=== PATIENT | male | born 1935 | race Caucasian/White ===

== ENCOUNTER 2017-07-11 13:31 | Outpatient (CLI) | payer MEDICARE, BC ==
--- NOTE | 2017-07-11 15:17 | MRI ---
SATISH LUMBAR SPINE WITH AND WITHNOUT CONTRAST: Date: 07/11/17 INDICATION: History of back pain, left leg foot drop, and pain. History of renal cancer. Back surgery in November 17. COMPARISON: MRI lumbar spine without contrast dated 06/16/16. TECHNIQUE: Multiplanar, multisequence MR images were obtained of the lumbar spine with and without contrast. 10 mL of MultiHance utilized for the exam. FINDINGS: Since the comparison examination, there has been interval performance of laminectomies at L2-3 and L 3-4. The visualized retroperitoneum demonstrates large cystic abnormalities involving both kidneys which were seen on the comparison examination. At L5-S1, there is a broad based disc bulge with a superimposed central disc protrusion which is sta ble to the prior exam. There is moderate right and mild left facet joint degenerative change. Conste llation of findings induces mild right and minimal left neural foraminal narrowing. At L4-5, there is stable Grade I anterolisthesis. There is severe facet joint degenerative change. T here is a broad based disc bulge and facet hypertrophy inducing mild central canal narrowing with mo derate to severe right and mild left neural foraminal narrowing. This is stable to the prior exam. At L3-4, there is a broad based disc osteophyte complex with facet hypertrophy inducing mild central canal narrowing with mild to moderate left and severe right neural foraminal narrowing which is sta ble. At L2-3, there is a broad based disc osteophyte complex and facet hypertrophy inducing mild central canal narrowing. The extent of the central canal narrowing is improved from the comparison exam. The re is a broad based disc osteophyte complex and facet hypertrophy inducing moderate to severe left a nd moderate right neural foraminal narrowing which is stable to the prior exam. At L1-L2, there is a broad based disc bulge with facet hypertrophy inducing mild central canal narro wing with moderate right and moderate to severe left neural foraminal narrowing. This is stable to t he prior exam. At T12-L1, there is a broad based disc osteophyte complex causing mild bilateral neural foraminal na rrowing which is stable. No definite abnormal enhancement is demonstrated. IMPRESSION: 1. Interval decompression of the L2-3 intervertebral level and L3-4 intervertebral level with impro vement in the central canal narrowing. Mild central canal narrowing remains at L2-3 and L3-4. 2. Multilevel prominent neural foraminal narrowing is stable. POS: [facility]
== END 2017-07-11 13:32 | disposition home or self-care (01) ==
LOC: TBSIIMAG 13:31
PROVIDERS: ATTEND Neurological Surgery
DX: M54.16 Radiculopathy, lumbar region (principal); M48.061 Spinal stenosis, lumbar region without neurogenic claudication
CPT/HCPCS: 72158

== ENCOUNTER 2018-08-23 09:43 | Outpatient (CLI) | payer MEDICARE ==
--- NOTE | 2018-08-23 12:43 | RAD ---
KUB: Date: 08-23-18 Comparison: 06-30-15 History: Renal calculi. FINDINGS: Multiple punctate calcific densities overlie the left upper quadrant, etiology uncertain. These could simply represent vascular calcifications. Punctate renal calculi cannot be excluded on the basis of this exam. No calcification in the right upper quadrant seen. Bilateral laminectomy changes noted at L3, L4, and L5 with multilevel degenerative disc disease of th e lumbar spine. Multiple calcifications in the pelvis noted, suggesting vascular calcifications. Ther e is an incompletely imaged hip arthroplasty on the left. There is degenerative change at the pubic s ymphysis. There is degenerative change of bilateral sacroiliac joints. IMPRESSION: Abdominal and pelvic calcification as detailed above. POS: [facility]
== END 2018-08-23 09:44 | disposition home or self-care (01) ==
LOC: RAD 09:43
PROVIDERS: ATTEND Urology
DX: Z09 Encounter for follow-up examination after completed treatment for conditions other than malignant neoplasm (principal); N28.89 Other specified disorders of kidney and ureter; Z87.442 Personal history of urinary calculi
CPT/HCPCS: 74018

== ENCOUNTER 2019-01-27 06:22 | Emergency (ER) | payer MEDICARE, BC ==
--- NOTE | 2019-01-27 08:50 | RAD ---
CHEST 2 VIEWS: Date: 01/27/19 INDICATION: Cough for 3 days. COMPARISON: Prior single view of chest dated 04/13/11. FINDINGS: There is stable cardiomegaly. Lungs are clear. There is multilevel spondylosis throughout thoracic sp ine. No pleural effusion or pneumothorax evident. IMPRESSION: Stable cardiomegaly. POS: [facility]
--- NOTE | 2019-01-31 05:38 | PQF ---
[facility] POST DISCHARGE CLINICAL DOCUMENTATION IMPROVEMENT CLARIFICATION FORM l Todays Date: 01/30/19 l Patients Name CATERINA CASTELLANOS l l Admit Date 01/27/19 l Disch Date 01/27/19 Manager Mobile Name Martinez Ji Email: @[email or web address] Cell: [phone] To be completed by Manager Mobile: Present Clinical Indicators - Signs / Symptoms Results and Location in Medical Record [ ] Documentation of: [ ] [ ] Documentation of: [ ] [ ] Documentation of: [ ] [ ] Documentation of: [ ] [ ] Risks [ ] [ ] [ ] Treatment [ ] Bronchitis Missing specification of Acute or chronic Bronchitis [ ] [ ] To be completed by Physician: DO CAMPOS MATTHEW The documentation in this patients record requires clarification to ensure coding compliance and accuracy. Check the appropriate box and include in your discharge summary. [ ] [ ] [ ] [ ] Please check this box if this does not apply to this patient [ ] Unable to determine [ ] Other diagnosis: Review the following information and exercise your independent professional judgment in responding to the clarification. Based upon the clinical findings, risk factors, and treatment, please clarify if you are treating one of the above probable or suspected diagnoses. Physician Signature: Date Time MTDD
== END 2019-01-27 07:30 | disposition home or self-care (01) ==
LOC: ERS 06:22
DX: J40 Bronchitis, not specified as acute or chronic (principal); I10 Essential (primary) hypertension; E78.5 Hyperlipidemia, unspecified; Z79.899 Other long term (current) drug therapy
CPT/HCPCS: 71046; 87804

== ENCOUNTER 2019-01-29 04:07 | Observation (INO) | payer MEDICARE, BC ==
[2019-01-29] MEDS ORDERED: Morphine 4 MG/ML VIAL ONE (04:41)
[2019-01-29] MEDS ORDERED: Ondansetron PF 4 MG/2 ML Vial ONE (04:42)
[2019-01-29 04:54] LABS: #Basophils 0.1 thou/uL (0.0-0.2); #Eosinphils 0.3 thou/uL (0.0-0.7); #Lymphocytes 1.1 thou/uL (1.20-3.40); #Monocytes 1.5 thou/uL (0.11-0.59); #Neutrophils 9.7 thou/uL (1.40-6.50); %Basophils 0.4 % (0.0-1.0); %Lymphocytes 8.8 % (21.0-51.0); %Neutrophils 76.8 % (42.0-75.0); Hemoglobin 12.9 g/dL (14.0-18.0); Mean Corpuscular HGB CONC 33.3 g/dL (32.0-36.0); Mean Corpuscular Hemoglobin 31.9 pg (27.0-31.0); Mean Corpuscular Volume 95.9 fL (78.0-98.0); Mean Platelet Volume 8.3 fL (7.4-10.4); Platelet Count 162 thou/uL (130-400); RBC Distribution Width 12.4 % (11.5-14.5); Red Blood Cell (RBC) Count 4.04 mill/uL (4.70-6.10); White Blood Cell (WBC) Count 12.7 thou/uL (4.8-10.8)
[2019-01-29 05:17] LABS: ALT (SGPT) 20 U/L (8-55); AST (SGOT) 22 U/L (5-34); Albumin 4.1 g/dL (3.4-4.8); Alkaline Phosphatase 68 U/L (40-150); Anion Gap 14 mmol/L (10-20); BUN (Urea Nitrogen) 22 mg/dL (8.4-25.7); Bilirubin, Total 0.6 mg/dL (0.2-1.2); Calc. Creatinine Clearance 0 mL/min (70-130); Calcium 9.4 mg/dL (7.8-10.44); Carbon Dioxide 24 mmol/L (23-31); Chloride 105 mmol/L (98-107); Estimated GFR-MDRD 61; Glucose 105 mg/dL (83-110); Potassium 4.1 mmol/L (3.5-5.1); Protein, Total 7.1 g/dL (5.8-8.1); Sodium 139 mmol/L (136-145)
--- NOTE | 2019-01-29 06:56 | ULT ---
LEFT UPPER EXTREMITY DOPPLER VENOUS ULTRASOUND: INDICATIONS: History of left arm pain and pain at the wrist and fingers. TECHNIQUE: Graf-scale and color Doppler with spectral Doppler images were obtained of the venous structures of t he left upper extremity. The left internal jugular vein, the left subclavian vein, the left axillary vein, the left brachial vein, the left basilic vein, the left cephalic vein, the left ulnar vein, an d the left renal vein were assessed. FINDINGS: There is appropriate flow, augmentation, and compression involving the venous structures of the left upper extremity. IMPRESSION: No evidence of venous thrombosis within the left upper extremity. POS: [facility]
[2019-01-29] MEDS ORDERED: Aspirin 325 MG TAB ONE (07:46)
[2019-01-29] MEDS ORDERED: methylPREDNISolone Sod Succ/PF 125 MG/2 ML VIAL ONE (08:17)
[2019-01-29] MEDS ORDERED: Labetalol HCl 100 MG/20 ML VIAL SLOW IVP PRN (08:20)
[2019-01-29] MEDS ORDERED: Ondansetron ODT 4 MG TAB PO PRN (08:20)
[2019-01-29] MEDS ORDERED: Acetaminophen 325 MG TAB PO PRN (08:20)
[2019-01-29] MEDS ORDERED: Zolpidem Tartrate 5 MG TAB PO PRN (08:20)
[2019-01-29] MEDS ORDERED: HYDROcodone/Acetaminophen 7.5/325 mg Tablet PO PRN (08:20)
[2019-01-29] MEDS ORDERED: hydrALAZINE 20 MG/ML VIAL SLOW IVP PRN (08:20)
[2019-01-29] MEDS ORDERED: Lorazepam 2 MG/ML VIAL SLOW IVP PRN (08:23)
[2019-01-29] MEDS ORDERED: methylPREDNISolone Sod Succ/PF 125 MG/2 ML VIAL IVP SCH (08:30)
--- NOTE | 2019-01-29 08:44 | CT ---
PRELIMINARY REPORT/[facility]/EMERGENTY AFTER-HOURS PROCEDURE CT Head Without Contrast EXAM DATE/TIME: 01/29/2019 4:43 AM CLINICAL HISTORY: 83 years old, male; Signs and symptoms; Numbness / parasthesia; Patient HX: Er 5. No previous in pacs . M83 presents to ED for left arm weakness. PT reports working outside Monday evening, then left wris t and arm began hurting and weak. PT denies any other new numbness or weakness. PT was recently diagnosed w arthritis in bilat wrist by pcp Dr. Andersen, started on medication, but told to [facility] by at [facility]. PT was also seen Monday in ED, diagnosed with bronchitis. Hxlymphoma. TECHNIQUE: Imaging protocol: Axial computed tomography images of the head without contrast. COMPARISON: No relevant prior studies available. FINDINGS: Brain: No hemorrhage. No major vessel vascular territory infarct. No extra-axial fluid collection. Ch ronic small vessel ischemic changes. Ventricles: No hydrocephalus. Bones/joints: No acute fracture. Sinuses: Near-complete opacification of the right maxillary sinus. Mucosal thickening of the left maxillary sinus and multiple ethmoidal air cells. Mastoid air cells: Visualized mastoid air cells are well aerated. No mastoid effusion. Soft tissues: Unremarkable. IMPRESSION: No acute intracranial abnormality. Thank you for allowing us to participate in the care of your patient. Dictated and Authenticated by: Julia Raman MD 01/29/2019 5:06 AM Central Time ([place] & [place]) FINAL REPORT CT BRAIN WITHOUT CONTRAST: FINDINGS: I agree with the preliminary report given by Dr. Raman of [facility]. POS: [facility]
[2019-01-29] MEDS ORDERED: Enoxaparin Sodium 40 MG/0.4 ML SYRINGE SC SCH (09:00)
[2019-01-29] MEDS ORDERED: Amlodipine 5 MG TAB PO SCH (09:00)
--- NOTE | 2019-01-29 09:29 | HP ---
PRIMARY CARE PROVIDER: Cameron Andersen MD HISTORY OF PRESENT ILLNESS: Referred to the [facility] Service for a stroke versus TIA. The patient was in the emergency department 2 days ago with bronchitis, cough, congestion, got some medications and worked hard outside yesterday. Now with left arm hand weakness and pain. Pain is in his wrist, radiated up into his neck. No visual defect. No speech defect. No left leg problems. 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 He has had a renal cell carcinoma with a partial nephrectomy on the right in the past. He has hypertension, dyslipidemia, benign prostatic hypertrophy with prostatism. PAST SURGICAL HISTORY: L-spine surgery in 2016 and 2018, ORIF of the left femur x2 in the past, appendectomy. CURRENT MEDICATIONS: Routine, 1. Atorvastatin 40 mg a day. 2. Atenolol 50 mg a day, which he has been off for 2 days due to slow pulse. 3. Imdur 30 mg a day. 4. Aspirin 81 mg a day. 5. Lisinopril 20 mg a day. 6. Flomax 0.4 mg a day. 7. Prazosin 2 mg three times a day. ALLERGIES: NO KNOWN DRUG ALLERGIES. FAMILY HISTORY: Remarkable. Mother of breast cancer. Father of stomach cancer. Son with lymphoma currently in remission. One sibling of pancreatic cancer. One sibling of prostatic cancer. SOCIAL HISTORY: . Full code. Son, Dorian Cee, is the next of kin. No tobacco. No alcohol. REVIEW OF SYSTEMS: HEAD: No headaches, dizziness, fainting, fever, or chills. EYES: No double vision, blurred vision, or flashing light. EARS, NOSE, AND THROAT: No ear pain or drainage. No nose bleeding. No trouble swallowing. CARDIAC: No chest pain, orthopnea, or paroxysmal nocturnal dyspnea. RESPIRATIONS: Recent cough on medications, improved. No wheezing or asthma. GASTROINTESTINAL: No nausea, vomiting, diarrhea, or constipation. GENITOURINARY: No hematuria, dysuria, or nocturia. MUSCULOSKELETAL: He has no pain or swelling in his muscles, legs. He does have some radicular sciatica in his right posterior thigh. NEUROLOGICAL: No strokes or seizures. PSYCHIATRIC: No anxiety or depression. SKIN: No bruising, bleeding, or rash. HEME/LYMPH: No tender or swollen lymph nodes in axilla, inguinal, or cervical area. PHYSICAL EXAMINATION: VITAL SIGNS: Blood pressures ranging in the 215/101 to 149/72 range. Most recent diastolic in his room was 101, pulse 69, respirations 18, and temperature 98.4. HEAD, EYES, EARS, NOSE, AND THROAT: Reveals pupils are equal, round, reactive to light. Extraocular movements are intact. Sclerae are white. Tympanic membranes are clear. Nose is clear. Oral mucous membranes are wet. Dental hygiene is good. CHEST: Clear to auscultation and percussion. HEART: Has regular rate and rhythm. First and second second heart sounds are clear. There are no appreciated murmurs or gallops. ABDOMEN: Soft. Bowel sounds are normal. There is no hepatosplenomegaly. No mass. No rebound. No bruits. EXTREMITIES: Reveal no cyanosis, clubbing, or edema. He does have a hot, red, warm left wrist. PULSES: Carotid, radial, femoral, and dorsalis pedis pulses intact. SKIN: Warm and dry without bruises or rash. HEME/LYMPH: No tender or swollen lymph nodes in the axilla, inguinal, or cervical area. NEUROLOGICAL: He has some decreased [facility] [place] strength in his right hand, but it is related to pain and not weakness. He has no loss of strength in extensor flexor of the wrist or the elbow. IMAGING STUDIES: EKG not available, we will order. Vascular ultrasound done on the left arm reveals no thrombosis, etc. Brain CT reveals no acute intracranial abnormality, reviewed by me. LABORATORY DATA: CBC has mild elevation of white count at 12.7, hemoglobin is 12.9, platelet count is 162,000. Comprehensive metabolic profile is normal. ADMITTING DIAGNOSES: Probable acute gout, cervical radiculopathy, follicular lymphoma, hypertension, dyslipidemia, benign prostatic hypertrophy. PLAN: 1. The patient has been given 125 mg Solu-Medrol IV. 2. The patient is given amlodipine 5 mg p.o. now for hypertension. 3. Uric acid level and cervical MRI have been ordered. We will continue discussion further when data is available. Job ID: [id number]
[2019-01-29] MEDS ORDERED: Enoxaparin Sodium 40 MG/0.4 ML SYRINGE ONE (10:11)
[2019-01-29] MEDS ORDERED: Amlodipine 5 MG TAB ONE (10:11)
[2019-01-29 16:23] VITALS: TEMP 98.7
[2019-01-29 16:30] VITALS: BMI 31.4
[2019-01-29 16:53] VITALS: BP 155/69
--- NOTE | 2019-01-30 07:14 | DIS ---
DATE OF ADMISSION: 01/29/2019 DATE OF DISCHARGE: 01/29/2019 PRIMARY CARE PROVIDER: Dr. Cameron Andersen. FINAL DIAGNOSES: Acute arthritis, left wrist; follicular lymphoma; hypertension; dyslipidemia; and benign prostatic hypertrophy with prostatism. DISCHARGE MEDICATIONS: 1. Medrol Dosepak, start on 01/30/2019. 2. Amlodipine 5 mg p.o. daily. 3. Prazosin 2 mg twice a day. 4. Lisinopril 20 mg twice a day. 5. Imdur 30 mg daily. 6. Aspirin 81 mg a day. 7. Lipitor 40 mg a day. 8. Zithromax 250 mg in a Z-Willis, started on 01/27/2019. 9. Allopurinol 100 mg a day. 10. Tessalon Perles 100 mg every 8 hours. 11. Flomax 0.4 mg twice a day. 12. Mucinex D q.12 hours. ALLERGIES: NO KNOWN DRUG ALLERGIES. DIET: Heart healthy. PENDING AT TIME OF DISCHARGE: Nothing. CODE STATUS: Full. HOSPITAL COURSE: [facility] and TIA due to left hand weakness. In my evaluation, I found he had an inflamed left wrist, tender, erythematous; no fluctuance. 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 His blood pressure was elevated in the emergency room. He had stopped his atenolol due to having pulses in the 40s range and feeling fatigued. He was started on amlodipine and his blood pressure is currently 155/69. He was given Solu-Medrol in the emergency room. 8 hours later, he has minimal erythema, minimal swelling, good range of motion of his wrist, good cloth printing inspector strength. Because of the worry of possible cervical radiculopathy, I had ordered MRI of his C-spine, but since he is doing so well that he and I agreed it would be canceled. His uric acid was in normal range. On discussion, he is agreeable with going home with the addition of the amlodipine and Medrol Dosepak. I have asked him to follow up with Dr. Cameron Andersen, his primary care provider, in 1 week. CONSULTATIONS: None. PROCEDURES: None. Job ID: [id number]
== END 2019-01-29 19:40 | disposition home or self-care (01) ==
LOC: ERS 04:07 → ERHOLD 07:00 → 2SE 14:01
PROVIDERS: ADMIT Internal Medicine; ATTEND Internal Medicine
DX: M19.032 Primary osteoarthritis, left wrist (principal); R53.1 Weakness; M79.602 Pain in left arm; I10 Essential (primary) hypertension; E78.5 Hyperlipidemia, unspecified; N40.0 Benign prostatic hyperplasia without lower urinary tract symptoms; M54.12 Radiculopathy, cervical region; Z85.528 Personal history of other malignant neoplasm of kidney; Z85.72 Personal history of non-Hodgkin lymphomas; Z79.82 Long term (current) use of aspirin; Z79.899 Other long term (current) drug therapy; Z90.5 Acquired absence of kidney
CPT/HCPCS: 70450; 80053; 84484; 84550; 85025; 93005; 93971; 96374; 96375; 99285; G0378 ×2; J1650; J2270; J2405; J2930

== ENCOUNTER 2019-02-15 02:43 | Emergency (ER) | payer MEDICARE, BC ==
[2019-02-15 03:30] LABS: #Eosinphils 0.2 thou/uL (0.0-0.7); #Lymphocytes 1.1 thou/uL (1.20-3.40); #Monocytes 1.3 thou/uL (0.11-0.59); #Neutrophils 9.7 thou/uL (1.40-6.50); %Basophils 0.1 % (0.0-1.0); %Eosinophils 1.4 % (0.0-10.0); %Lymphocytes 9.1 % (21.0-51.0); %Monocytes 10.6 % (0.0-10.0); %Neutrophils 78.9 % (42.0-75.0); Hemoglobin 12.5 g/dL (14.0-18.0); Mean Corpuscular HGB CONC 33.3 g/dL (32.0-36.0); Mean Corpuscular Hemoglobin 31.7 pg (27.0-31.0); Mean Corpuscular Volume 95.2 fL (78.0-98.0); Mean Platelet Volume 7.6 fL (7.4-10.4); Platelet Count 201 thou/uL (130-400); RBC Distribution Width 12.6 % (11.5-14.5); Red Blood Cell (RBC) Count 3.94 mill/uL (4.70-6.10); White Blood Cell (WBC) Count 12.3 thou/uL (4.8-10.8)
[2019-02-15] MEDS ORDERED: HYDROcodone/Acetaminophen 5/325 mg Tablet ONE (03:49)
[2019-02-15 03:53] LABS: ALT (SGPT) 26 U/L (8-55); AST (SGOT) 24 U/L (5-34); Alkaline Phosphatase 63 U/L (40-150); Anion Gap 13 mmol/L (10-20); BUN (Urea Nitrogen) 18 mg/dL (8.4-25.7); Bilirubin, Total 0.4 mg/dL (0.2-1.2); Calc. Creatinine Clearance 0 mL/min (70-130); Calcium 9.6 mg/dL (7.8-10.44); Carbon Dioxide 26 mmol/L (23-31); Chloride 102 mmol/L (98-107); Estimated GFR-MDRD 64; Glucose 109 mg/dL (83-110); Sodium 137 mmol/L (136-145)
[2019-02-15] MEDS ORDERED: methylPREDNISolone Sod Succ/PF 125 MG/2 ML VIAL ONE (04:09)
[2019-02-15] MEDS ORDERED: Ketorolac Tromethamine 30 MG/ML VIAL ONE (04:20)
--- NOTE | 2019-02-15 08:08 | RAD ---
XR Wrist 3 Rt View STANDARD: 02/15/2019 3:15 AM CLINICAL INDICATION: Pain COMPARISON: None. 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 IMPRESSION: 1. No acute osseous abnormality. 2. Chronic ulnar styloid avulsion.
== END 2019-02-15 05:45 | disposition home or self-care (01) ==
LOC: ERS 02:43
DX: M25.531 Pain in right wrist (principal); I10 Essential (primary) hypertension; E78.5 Hyperlipidemia, unspecified; Z79.899 Other long term (current) drug therapy; Z79.82 Long term (current) use of aspirin
CPT/HCPCS: 36415; 80053; 84484; 85025; 85652; 86140; 93005; 96372; J1885; J2930

== ENCOUNTER 2020-06-07 06:43 | Inpatient (IN) | payer MEDICARE, BC ==
[2020-06-07] MEDS ORDERED: Ondansetron PF 4 MG/2 ML Vial IVP PRN (08:15)
[2020-06-07] MEDS ORDERED: hydrALAZINE 20 MG/ML VIAL SLOW IVP PRN (08:19)
[2020-06-07] MEDS: hydrALAZINE 25 MG TAB PO SCH ×3 (08:42→20:28)
[2020-06-07] MEDS: Amlodipine 10 MG TAB PO SCH (08:43)
[2020-06-07] MEDS: Enoxaparin Sodium 40 MG/0.4 ML SYRINGE SC SCH (08:44)
[2020-06-07] MEDS: Acetaminophen 325 MG TAB PO PRN ×2 (08:44→20:42)
[2020-06-07] MEDS: niCARdipine 25 MG in Sodium Chloride 0.9% 250 ML 250 ML IVPB SCH ×2 (11:54→15:06)
--- NOTE | 2020-06-07 12:17 | PDOC.HHP ---
Hospitalist HPI - History of Present Illness High blood pressure History of Present Illness: The patient is an 85-year-old male with past medical history of hypertension, hyperlipidemia, lymphoma, and renal malignancy 10 years ago who presented to [facility] ER due to elevated blood pressure. The patient's systolic blood pressure was found to be consistently above 200 despite IV hydralazine. He was also bradycardic and EKG revealed Mobitz type I AV block. 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 Vallejo. He denies chest pain, shortness of breath, dizziness, headache, or blurry vision. Hospitalist ROS - Review of Systems All other systems reviewed; all pertinent +/- noted in HPI/Subj - Medication Medications: Active Medications Generic Name Dose Route Start Last Admin Trade Name Freq PRN Reason Stop Dose Admin Acetaminophen 650 mg 06/07/20 08:15 06/07/20 08:44 Acetaminophen 325 Mg Tab PO 650 mg Q4H PRN Administration Headache/Fever/Mild Pain (1-3) Amlodipine Besylate 10 mg 06/07/20 09:00 06/07/20 08:43 Amlodipine 10 Mg Tab PO 10 mg DAILY WILDA Administration Enoxaparin Sodium 40 mg 06/07/20 09:00 06/07/20 08:44 Enoxaparin Sodium 40 Mg/0.4 Ml Syringe SC 40 mg 0900 WILDA Administration Hydralazine HCl 75 mg 06/07/20 09:00 06/07/20 08:42 Hydralazine 25 Mg Tab PO 75 mg TID WILDA Administration Nicardipine HCl 25 mg/ Sodium 260 mls @ 0 mls/hr 06/07/20 10:45 06/07/20 11:54 Chloride IVPB 260 mls INF WILDA Administration Protocol Titrate Sodium Chloride 10 ml 06/07/20 09:00 06/07/20 08:44 Flush - Normal Saline 10 Ml Syringe IVF 10 ml Q12HR WILDA Administration Hospitalist History - Past Medical History Cardiac: reports: HTN, Hyperlipidemia, Other (Bradycardia) Other Medical History: Lymphoma Renal malignancy - Past Surgical History Other Surgical History: Back surgery - Family History Family History: reports: no pertinent history - Social History Alcohol: reports: None Drugs: reports: none - Exam General Appearance: awake alert ENT: normocephalic atraumatic Neck: supple, no JVD Respiratory: normal chest expansion, no tachypnea Gastrointestinal: soft Neurological: cranial nerve grossly intact, no focal deficits Hospitalist H&P A/P - Problem (1) Hypertensive urgency Code(s): I16.0 - HYPERTENSIVE URGENCY Status: Acute (2) Mobitz (type) I (Wenckebach's) atrioventricular block Code(s): I44.1 - ATRIOVENTRICULAR BLOCK, SECOND DEGREE Status: Acute (3) Hyperlipidemia Code(s): E78.5 - HYPERLIPIDEMIA, UNSPECIFIED Status: Acute - Plan Plan: The patient was initially admitted to [facility] but we are not able to maintain his systolic blood pressure below 200 despite giving him his oral blood pressure medications. Nicardipine drip has been initiated and the patient was transferred to the ICU. He remains in Mobitz type I AV block. His heart rate dropped to as low as mid 30s but currently we are in the 50s. Consult cardiology.
[2020-06-07] MEDS ORDERED: Hydrochlorothiazide 25 MG TAB PO SCH ×2 (12:30)
--- NOTE | 2020-06-07 19:30 | CON ---
DATE OF CONSULTATION: HISTORY: Irineo Cee is an 85-year-old white male who I initially evaluated in March 2011 in the hospital. He gave a 6-month history of chest discomfort, radiating to his back followed by bilateral arm pains associated with that. The episodes would always occur in bed at night and seem to be somewhat positional. hurting. They were lasted approximately 30 minutes. He then had an episode that was more intense and lasted all night. If he would get up out of bed and move around, the discomfort would resolve. The episodes did not appear to be related to exertion. Cardiac enzymes were unremarkable. He underwent Lexiscan Cardiolite testing, which revealed a fixed defect at the true apex and mild ischemia involving septal wall. He underwent cardiac catheterization which revealed normal left ventricular function with ejection fraction of 50% to 55%. His coronary arteries were calcified. There was a 20% proximal LAD and 30% mid LAD. Right coronary artery was diffusely diseased and aneurysmal. There was a 60% mid stenosis and 80% stenosis at the bifurcation. With one vessel disease and lesion at the bifurcation, it was felt best to treat him medically, which had been done over the last 9 years. In September 2016, Cardiolite revealed proximal inferior wall fixed defect consistent with his right coronary artery disease. More recently, he had a cardiac PET scan which was normal without evidence of ischemia or fixed defect. His last echocardiogram was in October 2019. This revealed mild left ventricular enlargement, mild left ventricular hypertrophy, ejection fraction of 55% to 60%, evidence for diastolic dysfunction, mild left atrial enlargement, aortic valvular sclerosis, [id number] aortic regurgitation, moderate mitral annular calcification, mild mitral regurgitation, mild tricuspid regurgitation, mild pulmonic insufficiency. He was last seen in the office in February 2020. Blood pressure is 151/70, and his hydralazine was increased to 50 mg t.i.d. Beta blockers have been avoided in the past due to his asymptomatic bradycardia. 2 to 3 days ago, he went to [facility] for followup of his follicular lymphoma of the intraabdominal lymph nodes, which is being treated conservatively at the present time. It was noted that his blood pressure was elevated. He has been watching closer at home and frequently has pressure over 200. He may have a mild headache with this, but denies any chest discomfort or shortness of breath. He also denies any lightheadedness, dizziness, or syncope. He came to the emergency room for further evaluation and also has been placed in the CCU and placed on a Cardene drip. PAST MEDICAL HISTORY: Hypertension hypercholesterolemia, asymptomatic bradycardia, follicular lymphoma, history of renal cell carcinoma, and varicose veins. OPERATIONS: Back surgery, appendectomy, left total hip replacement, left partial nephrectomy, and right total knee replacement. MEDICATIONS: 1. Aspirin 81 mg q.a.m. 2. Atorvastatin 40 q.p.m. 3. Vitamin D3. 4. Apresoline 50 mg t.i.d. 5. Isosorbide mononitrate one half of a 30-mg tablet q.a.m. 6. Lisinopril 20 mg b.i.d. 7. Melatonin 10 mg at bedtime. 8. Prazosin 2 mg b.i.d. ALLERGIES: NONE. SOCIAL HISTORY: He does not smoke or drink. REVIEW OF SYSTEMS: A 10-point review of systems unremarkable. PHYSICAL EXAMINATION: VITAL SIGNS: Blood pressure 194/67, pulse 62. There are heart rates in the mid 40s; however, this was not documented on any rhythm strip. HEENT: PERRL. NECK: Supple. CHEST: Clear. CARDIAC: S1 and S2 normal without any S3 or S4. There is a 1/6 to 2/6 systolic ejection murmur along the left sternal border. ABDOMEN: Normal bowel sounds without tenderness or organomegaly. EXTREMITIES: Revealed no clubbing, cyanosis, or edema. NEUROLOGIC: Grossly intact. SKIN: Warm and dry. LABORATORY: I do not see an EKG on the chart. Hemoglobin 12.8, hematocrit 38.6, white count 7400, and platelets 193,000. Sodium 142, potassium 4.2, chloride 106, carbon dioxide 25, BUN 16, and creatinine 1.08. Last LDL was 47 in February. IMPRESSION: 1. Hypertensive emergency. 2. One-vessel coronary artery disease with 60% mid right coronary artery and an 80% lesion at the bifurcation and on catheterization in 2010. He has been treated medically. 3. Hypertension, poorly controlled. 4. Hypercholesterolemia under good control. 5. Aortic sclerosis on last echo. 6. Aortic insufficiency. 7. Mitral regurgitation. 8. Bradycardia which in the past has been asymptomatic without any lightheadedness, dizziness, syncope, or mental confusion. 9. 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 10. Varicose veins. 11. History of left partial nephrectomy for renal cell carcinoma. RECOMMENDATIONS: The patient has been placed on a Cardene drip. EKG will be obtained. Echocardiogram will be performed to reassess left ventricular function. I will restart his lisinopril 20 mg b.i.d. He has had amlodipine 10 mg added to his current regimen. We will continue to monitor his heart rate closely. He has had long-standing bradycardia, but has never been symptomatic from that. Certainly, his blood pressure would be easier to control if beta blockers could be used if he did have a pacemaker. I will continue to follow the patient with you. Job ID: [id number] MTDD
[2020-06-07] MEDS: Lisinopril 20 MG TAB PO SCH (20:29)
[2020-06-08] MEDS: niCARdipine 25 MG in Sodium Chloride 0.9% 250 ML 240 ML IVPB SCH ×2 (00:05→07:05)
[2020-06-08] MEDS: Acetaminophen 325 MG TAB PO PRN ×3 (00:42→20:11)
[2020-06-08 00:51] VITALS: BMI 30.2
[2020-06-08 03:30] LABS: #Basophils 0.1 thou/uL (0.0-0.2); #Eosinphils 0.2 thou/uL (0.0-0.7); #Lymphocytes 1.8 thou/uL (1.20-3.40); #Monocytes 1.1 thou/uL (0.11-0.59); %Basophils 0.6 % (0.0-1.0); %Eosinophils 1.9 % (0.0-10.0); %Lymphocytes 20.1 % (21.0-51.0); %Monocytes 11.9 % (0.0-10.0); %Neutrophils 65.5 % (42.0-75.0); Hemoglobin 13.9 g/dL (14.0-18.0); Mean Corpuscular HGB CONC 33.8 g/dL (32.0-36.0); Mean Corpuscular Hemoglobin 32.5 pg (27.0-31.0); Mean Corpuscular Volume 96.2 fL (78.0-98.0); Mean Platelet Volume 8.1 fL (7.4-10.4); Platelet Count 180 thou/uL (130-400); RBC Distribution Width 13.3 % (11.5-14.5); Red Blood Cell (RBC) Count 4.29 mill/uL (4.70-6.10); White Blood Cell (WBC) Count 9.1 thou/uL (4.8-10.8)
[2020-06-08 03:47] LABS: Anion Gap 14 mmol/L (10-20); BUN (Urea Nitrogen) 18 mg/dL (8.4-25.7); Calc. Creatinine Clearance 74 mL/min (70-130); Calcium 9.3 mg/dL (7.8-10.44); Carbon Dioxide 27 mmol/L (23-31); Chloride 102 mmol/L (98-107); Estimated GFR-MDRD 65; Glucose 98 mg/dL (83-110); Potassium 3.5 mmol/L (3.5-5.1); Sodium 139 mmol/L (136-145)
[2020-06-08] MEDS: hydrALAZINE 25 MG TAB PO SCH ×3 (09:22→20:11)
[2020-06-08] MEDS: Hydrochlorothiazide 25 MG TAB PO SCH (09:23)
[2020-06-08] MEDS: Amlodipine 10 MG TAB PO SCH (09:23)
[2020-06-08] MEDS: Lisinopril 20 MG TAB PO SCH ×2 (09:23→20:11)
[2020-06-08] MEDS: Enoxaparin Sodium 40 MG/0.4 ML SYRINGE SC SCH (09:24)
--- NOTE | 2020-06-08 15:51 | EKG ---
Test Reason : ROUTINE Blood Pressure : / mmHG Vent. Rate : 060 BPM Atrial Rate : 060 BPM P-R Int : 208 ms QRS Dur : 108 ms QT Int : 426 ms P-R-T Axes : 044 -16 002 degrees QTc Int : 426 ms Normal sinus rhythm Inferior infarct , age undetermined Possible Anterior infarct , age undetermined Abnormal ECG Confirmed by JARVIS KAM M.D. ([id number]) on 06/08/2020 3:50:59 PM Referred By: GRACE Confirmed By:JARVIS KAM M.D.
--- NOTE | 2020-06-08 16:39 | PDOC.HOSPP ---
- Subjective Encounter Date: 06/08/20 Subjective: The patient is feeling better today. His blood pressure is controlled without nicardipine drip. - Objective Vital Signs & Weight: Vital Signs (12 hours) Temp Pulse BP Pulse Ox 06/08/20 15:04 68 160/88 H 06/08/20 12:00 97.9 F 06/08/20 09:23 68 145/79 H 06/08/20 09:22 68 145/79 H 06/08/20 08:10 98 06/08/20 08:00 98.1 F Weight Weight 222 lb 10.67 oz Most Recent Monitor Data Heart Rate from ECG 65 NIBP 160/88 NIBP BP-Mean 112 Respiration from ECG 19 SpO2 98 I&O: 06/07/20 06/08/20 06/09/20 06:59 06:59 06:59 Intake Total 879 470 Output Total 2845 900 Balance -1966 -430 Result Diagrams: 06/08/20 03:20 06/08/20 03:20 Hospitalist ROS - Medication Medications: Active Medications Generic Name Dose Route Start Last Admin Trade Name Freq PRN Reason Stop Dose Admin Acetaminophen 650 mg 06/07/20 08:15 06/08/20 11:00 Acetaminophen 325 Mg Tab PO 650 mg Q4H PRN Administration Headache/Fever/Mild Pain (1-3) Amlodipine Besylate 10 mg 06/07/20 09:00 06/08/20 09:23 Amlodipine 10 Mg Tab PO 10 mg DAILY WILDA Administration Enoxaparin Sodium 40 mg 06/07/20 09:00 06/08/20 09:24 Enoxaparin Sodium 40 Mg/0.4 Ml Syringe SC 40 mg 09 WILDA Administration Hydralazine HCl 75 mg 06/07/20 09:00 06/08/20 15:04 Hydralazine 25 Mg Tab PO 75 mg TID WILDA Administration Hydrochlorothiazide 25 mg 06/08/20 09:00 06/08/20 09:23 Hydrochlorothiazide 25 Mg Tab PO 25 mg DAILY WILDA Administration Nicardipine HCl 25 mg/ Sodium 250 mls @ 0 mls/hr 06/07/20 23:45 06/08/20 00:05 Chloride IVPB 250 mls INF WILDA Administration Protocol Titrate Lisinopril 20 mg 06/07/20 21:00 06/08/20 09:23 Lisinopril 20 Mg Tab PO 20 mg BID WILDA Administration Sodium Chloride 10 ml 06/07/20 09:00 06/08/20 09:25 Flush - Normal Saline 10 Ml Syringe IVF 10 ml Q12HR WILDA Administration - Exam General Appearance: awake alert Neck: supple, no JVD Heart: RRR, no murmur, no gallops, no rubs Respiratory: normal chest expansion, no tachypnea Neurological: cranial nerve grossly intact, no new deficit Hosp A/P (1) Hypertensive urgency Code(s): I16.0 - HYPERTENSIVE URGENCY Status: Acute (2) Mobitz (type) I (Wenckebach's) atrioventricular block Code(s): I44.1 - ATRIOVENTRICULAR BLOCK, SECOND DEGREE Status: Acute (3) Hyperlipidemia Code(s): E78.5 - HYPERLIPIDEMIA, UNSPECIFIED Status: Acute - Plan The patient's blood pressure is better controlled today. Cardiomegaly has been weaned off. Continue his oral antihypertensive medications. No significant bradycardia today. Transfer to telemetry.
[2020-06-09] MEDS: Hydrochlorothiazide 25 MG TAB PO SCH (09:30)
[2020-06-09] MEDS: Lisinopril 20 MG TAB PO SCH (09:30)
[2020-06-09] MEDS: Amlodipine 10 MG TAB PO SCH (09:32)
[2020-06-09] MEDS: Acetaminophen 325 MG TAB PO PRN (09:33)
[2020-06-09] MEDS: hydrALAZINE 25 MG TAB PO SCH ×2 (09:33→15:22)
[2020-06-09] MEDS: Enoxaparin Sodium 40 MG/0.4 ML SYRINGE SC SCH (09:33)
[2020-06-09 15:24] VITALS: TEMP 98
[2020-06-09 15:26] VITALS: BP 167/90
--- NOTE | 2020-06-10 03:12 | DIS ---
DATE OF ADMISSION: 06/07/2020 DATE OF DISCHARGE: 06/09/2020 DISCHARGE DIAGNOSES: 1. Hypertensive emergency. 2. 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 3. Hyperlipidemia. DISCHARGE MEDICATIONS: The patient will continue his home medications with the following changes. Isosorbide mononitrate dose will be increased to 30 mg orally daily and hydralazine dose will be increased to 50 mg orally t.i.d. HISTORY OF PRESENT ILLNESS AND HOSPITAL COURSE: The patient is an 85-year-old male with past medical history of hypertension, bradycardia, aortic stenosis, lymphoma, hyperlipidemia, who presented to the hospital with complaints of high blood pressure at home. In the ER, the patient's blood pressure was consistently above 200 despite IV antihypertensive medications. He was placed on a nicardipine drip and admitted to the intensive care unit. The patient was also noted to be bradycardic with heart rate in the 50s. He was initially managed with IV nicardipine, which was transitioned to oral medications as noted above. We were able to control his blood pressure and his heart rate also improved with increasing dose of hydralazine. The patient did not exhibit any symptoms with his bradycardia. He was seen by Cardiology during his hospital stay. No acute intervention at this time. Outpatient followup with PCP in 1 week was recommended. Job ID: [id number]
== END 2020-06-09 17:12 | disposition home or self-care (01) | DRG 309 ==
LOC: IMCU/EMU 07:15 → CCU 11:59 → IMCU/EMU 06-08 19:56
PROVIDERS: ADMIT Internal Medicine; ATTEND Internal Medicine
DX: I44.1 Atrioventricular block, second degree (principal); I16.1 Hypertensive emergency; C82.93 Follicular lymphoma, unspecified, intra-abdominal lymph nodes; R00.1 Bradycardia, unspecified; I10 Essential (primary) hypertension; E78.00 Pure hypercholesterolemia, unspecified; Z96.642 Presence of left artificial hip joint; Z96.651 Presence of right artificial knee joint; I25.10 Atherosclerotic heart disease of native coronary artery without angina pectoris; I08.0 Rheumatic disorders of both mitral and aortic valves; I83.90 Asymptomatic varicose veins of unspecified lower extremity; Z85.53 Personal history of malignant neoplasm of renal pelvis; Z90.49 Acquired absence of other specified parts of digestive tract; Z79.82 Long term (current) use of aspirin; Z79.899 Other long term (current) drug therapy; Z90.5 Acquired absence of kidney
CPT/HCPCS: 36415; 80048; 85025; 93005; 93010; 93306; J1650; J7050

== ENCOUNTER 2020-06-11 10:07 | Emergency (ER) | payer MEDICARE, BC ==
[2020-06-11 11:03] LABS: #Eosinphils 0.1 thou/uL (0.0-0.7); #Lymphocytes 1.4 thou/uL (1.20-3.40); #Monocytes 1.2 thou/uL (0.11-0.59); #Neutrophils 8.1 thou/uL (1.40-6.50); %Basophils 0.3 % (0.0-1.0); %Eosinophils 1.2 % (0.0-10.0); %Lymphocytes 12.6 % (21.0-51.0); %Monocytes 11.1 % (0.0-10.0); %Neutrophils 74.7 % (42.0-75.0); Hemoglobin 12.9 g/dL (14.0-18.0); Mean Corpuscular HGB CONC 33.2 g/dL (32.0-36.0); Mean Corpuscular Hemoglobin 32.5 pg (27.0-31.0); Mean Platelet Volume 8.1 fL (7.4-10.4); Platelet Count 189 thou/uL (130-400); Red Blood Cell (RBC) Count 3.97 mill/uL (4.70-6.10); White Blood Cell (WBC) Count 10.8 thou/uL (4.8-10.8)
[2020-06-11 11:25] LABS: ALT (SGPT) 19 U/L (8-55); AST (SGOT) 18 U/L (5-34); Albumin 4.2 g/dL (3.4-4.8); Alkaline Phosphatase 54 U/L (40-110); Anion Gap 15 mmol/L (10-20); BUN (Urea Nitrogen) 48 mg/dL (8.4-25.7); Bilirubin, Total 0.3 mg/dL (0.2-1.2); Calc. Creatinine Clearance 0 mL/min (70-130); Calcium 9.3 mg/dL (7.8-10.44); Carbon Dioxide 24 mmol/L (23-31); Chloride 105 mmol/L (98-107); Estimated GFR-MDRD 35; Globulin 2.9 g/dL (2.4-3.5); Glucose 128 mg/dL (83-110); Lipase 54 U/L (8-78); Protein, Total 7.1 g/dL (5.8-8.1); Sodium 140 mmol/L (136-145)
[2020-06-11 11:30] LABS: Bilirubin Negative (Negative); Blood, Urine Negative (Negative); Clarity Clear (Clear); Glucose, Urine (Dipstick) Normal (Negative); Ketone, Urine Negative (Negative); Leukocyte Negative Leu/uL (Negative); Nitrite Negative (Negative); Protein, Urine (Dipstick) Negative (Neg-Trace); Specific Gravity, Urine 1.021 (1.002-1.036); Urobilinogen Normal mg/dL (Less than 2)
--- NOTE | 2020-06-11 11:48 | RAD ---
PORTABLE CHEST 1 VIEW: Date: 06/11/2020 Time: 1056 hours HISTORY: Low blood pressure, hypotension. COMPARISON: 06/07/2020. FINDINGS: The heart is enlarged. The aorta is tortuous. No lobar consolidation, pneumothoraces, nancy pulmonary edema, or pleural effusions are seen. IMPRESSION: No acute process. POS: OFF
== END 2020-06-11 13:00 | disposition home or self-care (01) ==
LOC: ERS 10:07
DX: E86.0 Dehydration (principal); H53.8 Other visual disturbances; T46.5X5A Adverse effect of other antihypertensive drugs, initial encounter; I10 Essential (primary) hypertension; E78.5 Hyperlipidemia, unspecified; Z79.899 Other long term (current) drug therapy; Z79.82 Long term (current) use of aspirin
CPT/HCPCS: 36415; 71045; 80053; 81003; 83605; 83690; 85025; 87040; 87086; 87149; 93005; 96360; 96361

== ENCOUNTER 2022-07-25 09:49 | Outpatient (CLI) | payer MEDICARE, BC | END 2022-07-25 09:50 | disposition home or self-care (01) | LOC: BICRAD 09:49 | PROVIDERS: ATTEND Family Medicine | DX: J06.9 Acute upper respiratory infection, unspecified (principal); J90 Pleural effusion, not elsewhere classified; J18.1 Lobar pneumonia, unspecified organism | CPT/HCPCS: 71046 ==